=== PATIENT | male | born 1955 | race Caucasian/White ===

== ENCOUNTER 2019-03-18 22:06 | Inpatient (IN) | payer OTHER ==
[~2019-03-18] VITALS: Ht 182.9 cm; Wt 92.0 kg
[2019-03-18 22:37] LABS: Basophils # (auto) 0 uL; Basophils % (auto) 0.3 % (0.0-2.0); Eosinophils # (auto) 0.1 uL; Eosinophils % (auto) 0.5 % (0.0-7.0); Lymphocytes # (auto) 0.7 uL; Mean Corpuscular Hemoglobin 30.5 pg (28.0-32.0); Mean Corpuscular Hgb Conc. 33.7 g/dL (32.0-36.0); Monocytes # (auto) 0.5 uL; Neutrophils % (auto) 89.4 % (37.0-80.0)
[2019-03-18 22:39] LABS: Hemoglobin 18.5 g/dL (13.5-17.5); Lymphocytes % (auto) 5.4 % (10.0-50.0); Mean Corpuscular Volume 90.7 fL (80.0-100.0); Monocytes % (auto) 4.4 % (0.0-12.0); Nucleated Red Blood Cells % 0.2 %; Platelet Count (auto) 222 10^3/uL (140-450); Red Blood Cells 6.06 10^6/uL (4.5-5.90); Red Cell Distribution Width 14.4 % (11.8-14.3); White Blood Cell 12.3 10^3/uL (4.4-10.8)
[2019-03-18 22:52] LABS: Albumin 3.6 g/dL (3.4-5.0); BUN/Creatinine Ratio 21.4; Calcium 8.7 mg/dL (8.5-10.1); Potassium 4.6 mmol/L (3.5-5.1)
[2019-03-18 22:57] LABS: Bilirubin, Total 0.4 mg/dL (0.2-1.0); Total Protein 7.1 g/dL (6.4-8.2)
[2019-03-18 22:59] LABS: INR 1.03 (0.9-1.15); Partial Thromboplastin Time 23.1 sec (23.64-32.05)
[2019-03-18] MEDS ORDERED: ASPirin-EC 325mg tab PO ONE (23:15)
[2019-03-18] MEDS ORDERED: LORazepam 0.5 MG TAB PO ONE (23:15)
[2019-03-18] MEDS ORDERED: NITROGLYCERIN 0.2MG/HR TOPICAL PATCH TD ONE (23:15)
[2019-03-18 23:59] LABS: Urine Bacteria FEW /hpf (None Seen); Urine Blood TRACE /uL (Negative); Urine Mucus FEW (None Seen); Urine Specific Gravity 1.032 (1.001-1.035); Urine WBC 1 /hpf (0 - 3)
[2019-03-19] MEDS ORDERED: MORPHINE SULFATE INJECTION 1 ML ONE (00:39)
[2019-03-19] MEDS ORDERED: ONDANSETRON HCL 4 MG/2 ML VIAL ONE ×2 (00:39→17:11)
[2019-03-19] MEDS ORDERED: ENOXAPARIN SOD 100 MG/1 ML SYRINGE SC ONE ×2 (00:39→00:45)
[2019-03-19] MEDS ORDERED: MORPHINE SULFATE 10 MG/ML INJ 1ML SDV IV ONE (00:45)
[2019-03-19] MEDS ORDERED: CLOPIDOGREL BISULFATE 75 MG TAB PO ONE ×2 (00:45→12:15)
[2019-03-19] MEDS ORDERED: ONDANSETRON HCL 4 MG/2 ML VIAL IV ONE (00:45)
[2019-03-19] MEDS ORDERED: NITROGLYCERIN 0.4 MG SL TAB SL PRN (02:30)
[2019-03-19] MEDS ORDERED: ACETAMINOPHEN 325 MG TAB PO PRN (02:30)
[2019-03-19] MEDS ORDERED: TEMAZEPAM 15 MG CAP PO PRN (02:30)
[2019-03-19] MEDS ORDERED: MORPHINE SULF INJ 2 MG/ML SYRINGE 1ML IV PRN (02:30)
[2019-03-19] MEDS ORDERED: ATORVASTATIN 20 MG TAB PO ONE (02:30)
[2019-03-19] MEDS ORDERED: ONDANSETRON HCL 4 MG/2 ML VIAL IV PRN (02:30)
[2019-03-19 04:00] VITALS: BP 121/81
--- NOTE | 2019-03-19 04:25 | NUR ---
Telemetry admit from ER [facility] admitted to Telemetry unit after SBAR received. Patient oriented to RHONDA CARDOSO OCA, primary RN, unit, room, bed, and unit policies regarding patient care and visiting hours. Patient now on continuous telemetry monitoring, tele box #69 and telemetry reading on arrival to unit is Sinus rhythm 82. Patient placed on bedside oxygen, weighed by bedscale and encouraged to call if they need something. All questions and concerns addressed, patient verbalized understanding. Bed in lowest locked position, call light within reach, side rails up x2. Will continue to monitor Q1hr and PRN.
[2019-03-19] MEDS ORDERED: LEVO125T7 PO (05:07)
[2019-03-19] MEDS ORDERED: ATEN-60 PO (05:07)
[2019-03-19] MEDS ORDERED: TERA5CAP42 PO (05:07)
[2019-03-19] MEDS ORDERED: SIMV-8 PO (05:07)
[2019-03-19] MEDS ORDERED: SILD100T57 PO (05:08)
[2019-03-19 05:46] VITALS: BP 121/81
[2019-03-19 08:00] VITALS: BP 123/74
[2019-03-19] MEDS ORDERED: ASPirin 81 mg TAB PO SCH (10:00)
[2019-03-19] MEDS: FAMOTIDINE 20 MG TAB PO SCH ×2 (10:08→22:16)
--- NOTE | 2019-03-19 11:10 | NUR ---
Asked ammunition assembly ii laborer to recall cardio consult.
--- NOTE | 2019-03-19 11:35 | NUR ---
RECIEVED CALL FROM LAB, PATIENT HAS CRITICAL TROPONIN OF 2.730. SAW DR BERRY AT [facility], NOTIFIED AND AWARE. NO NEW ORDERS.
[2019-03-19 11:50] LABS: Cholesterol 137 mg/dL (< 200); Triglycerides 68 mg/dL (< 150)
[2019-03-19 11:53] LABS: HDL Cholesterol 33 mg/dL (40-59); LDL Cholesterol 88 mg/dL (< 100)
[2019-03-19] MEDS ORDERED: ENOXAPARIN SOD 100 MG/1 ML SYRINGE SC SCH (12:00)
--- NOTE | 2019-03-19 12:10 | NUR ---
SPOKE WITH DR MURILLO, PT IS TO HAVE 450 MG PLAVIX AND 80 MG LIPITOR NOW. PT IS TO REMAIN NPO UNTIL CLEARED BY CARDIOLOGY. ONCE CLEARED CHARGE REPORTS PT MUST BE DISCHARGED HOME OR TRANSFERRED TO [facility], HE IS A [facility] PATIENT.
[2019-03-19] MEDS ORDERED: CLOPIDOGREL 300 MG TAB PO ONE (12:15)
[2019-03-19 13:00] VITALS: BP 131/77
[2019-03-19] MEDS ORDERED: ATORVASTATIN 20 MG TAB PO SCH ×2 (13:30→22:00)
[2019-03-19] MEDS ORDERED: SODIUM CHLORIDE 0.9% 1,000 ML IV SCH (14:24)
[2019-03-19] MEDS ORDERED: OPTISON 3ml Vial for INJ IV ONE (14:33)
--- NOTE | 2019-03-19 15:02 | NUR ---
RECEIVED CALL FROM TELEVISION ANNOUNCER, AGNIESZKA WANTS PATIENT TO HAVE HEART CATH TODAY. DEMO EVENT SPECIALIST PRINTED UP CONSENTS AND CHECKLIST. CHECKLIST DONE, PT LEFT FLOOR VIA BED AND STAFF. REQUESTED ZOFRAN FOR PATIENT BEFORE SEDATION AND DIET AFTER PROCEDURE.
[2019-03-19 16:26] LABS: Basophils # (auto) 0.1 uL; Basophils % (auto) 0.5 % (0.0-2.0); Eosinophils # (auto) 0 uL; Eosinophils % (auto) 0.1 % (0.0-7.0); Hematocrit 51.9 % (41.0-53.0); Hemoglobin 17.4 g/dL (13.5-17.5); Lymphocytes # (auto) 0.4 uL; Mean Corpuscular Hemoglobin 30.2 pg (28.0-32.0); Mean Corpuscular Hgb Conc. 33.4 g/dL (32.0-36.0); Mean Corpuscular Volume 90.2 fL (80.0-100.0); Monocytes # (auto) 0.6 uL; Monocytes % (auto) 4.6 % (0.0-12.0); Neutrophils # (auto) 12.8 uL; Neutrophils % (auto) 91.8 % (37.0-80.0); Platelet Count (auto) 214 10^3/uL (140-450); Red Blood Cells 5.75 10^6/uL (4.5-5.90); Red Cell Distribution Width 14.6 % (11.8-14.3)
[2019-03-19 16:40] LABS: Anion Gap 12 (5-15); BUN/Creatinine Ratio 25.7; Blood Urea Nitrogen 26 mg/dL (7-18); Carbon Dioxide 23 mmol/L (21-32); Chloride 106 mmol/L (98-107); GFR African American 96 mL/min; GFR Non-African American 79 mL/min; Glucose 98 mg/dL (74-106); Potassium 3.7 mmol/L (3.5-5.1); Sodium 141 mmol/L (136-145)
[2019-03-19 16:46] LABS: INR 1.05 (0.9-1.15); Partial Thromboplastin Time 26.8 sec (23.64-32.05)
[2019-03-19] MEDS ORDERED: IOHEXOL 350 MG/ML 100ML IJ ONE ×2 (17:01→17:34)
[2019-03-19] MEDS ORDERED: LIDOCAINE 2%HCL (LOCAL ANESTH.) INJ 20ML MDV ONE (17:01)
[2019-03-19] MEDS ORDERED: ANGIOMAX 250 MG VIAL IV ONE (17:07)
[2019-03-19] MEDS ORDERED: fentaNYL CITRATE 100 MCG/2 ML VL ONE ×2 (17:07→17:45)
[2019-03-19] MEDS ORDERED: SODIUM CHL 0.9% 50 ML ONE (17:08)
[2019-03-19] MEDS ORDERED: MIDAZOLAM HCL 1MG/1ML-2 ML VIAL ONE ×3 (17:08→17:45)
[2019-03-19] MEDS ORDERED: METOPROLOL TARTRATE 1MG/1ML-5ML VIAL IV ONE (17:52)
[2019-03-19] MEDS ORDERED: TICAGRELOR 90 MG TAB ONE (17:57)
--- NOTE | 2019-03-19 19:20 | NUR ---
Opening Shift Note Assumed care of patient, awake and alert. No S/S of distress/SOB or pain. Instructed on POC and to call for assist PRN, will continue to monitor for changes Q1hr and PRN.
[2019-03-19] MEDS ORDERED: KETOROLAC TROMETH 30 MG/ML 1ML VIAL IV ONE (20:15)
[2019-03-19] MEDS ORDERED: HYDROcodone-ACET 5/325MG TAB PO PRN (20:15)
[2019-03-19] MEDS: METOPROLOL TARTRATE 25 MG TAB PO SCH (22:16)
[2019-03-19] MEDS: TICAGRELOR 90 MG TAB PO SCH (22:16)
[2019-03-19] MEDS: LISINOPRIL 5 MG TAB PO SCH (22:17)
[2019-03-19 23:49] VITALS: BP 142/72
--- NOTE | 2019-03-20 | NUR ---
IV removal per patient. Patient stated his IV was bothering him and wanted it removed and not have another IV placed at this time. IV to left AC DC'd with sterile technique, catheter fully intact. Pressure dressing applied to site. Patient tolerated procedure well.
--- NOTE | 2019-03-20 00:45 | NUR ---
Care endorsed to Brijesh DELA CRUZ.
--- NOTE | 2019-03-20 00:47 | NUR ---
Assumed care of patient. Patient asleep with No S/S of distress/SOB or pain.Will continue to monitor for changes Q1hr and PRN.
[2019-03-20 05:38] VITALS: BP 133/81
[2019-03-20 06:40] LABS: Hemoglobin 18.2 g/dL (13.5-17.5); Lymphocytes # (auto) 0.5 uL; Monocytes # (auto) 0.8 uL; Nucleated Red Blood Cells % 0.1 %; White Blood Cell 11.5 10^3/uL (4.4-10.8)
[2019-03-20 06:44] LABS: Basophils # (auto) 0 uL; Basophils % (auto) 0.4 % (0.0-2.0); Eosinophils # (auto) 0.1 uL; Eosinophils % (auto) 0.6 % (0.0-7.0); Hematocrit 54.1 % (41.0-53.0); Lymphocytes % (auto) 4.6 % (10.0-50.0); Mean Corpuscular Hemoglobin 30.6 pg (28.0-32.0); Mean Corpuscular Hgb Conc. 33.6 g/dL (32.0-36.0); Mean Corpuscular Volume 91.1 fL (80.0-100.0); Monocytes % (auto) 7.1 % (0.0-12.0); Neutrophils % (auto) 87.3 % (37.0-80.0); Platelet Count (auto) 213 10^3/uL (140-450); Red Blood Cells 5.93 10^6/uL (4.5-5.90); Red Cell Distribution Width 14.5 % (11.8-14.3)
--- NOTE | 2019-03-20 07:00 | NUR ---
No IV access Patient continuos to refuse IV placement. Patient verbalized "I don't need it, I will go home anyway"
--- NOTE | 2019-03-20 07:07 | NUR ---
Endorsed care to day shift RN.
[2019-03-20 07:09] LABS: Albumin 3.3 g/dL (3.4-5.0); BUN/Creatinine Ratio 22.5; Bilirubin, Total 0.9 mg/dL (0.2-1.0); Calcium 8.4 mg/dL (8.5-10.1); Total Protein 6.6 g/dL (6.4-8.2)
--- NOTE | 2019-03-20 08:00 | NUR ---
Pt resting in bed, no distress noted. Pt reports no pain at this time. Right groin incision clean, dry and intact, minimal serosanguineous drainage noted on dressing. No signs of edema or erythema. Site soft on palpation. Pt reports he does not want another IV, he reports he wants to go home as soon as possible for a family gathering later on today.
[2019-03-20 09:00] VITALS: BP 143/80
[2019-03-20] MEDS ORDERED: ATORVASTATIN 20 MG TAB PO SCH (10:00)
[2019-03-20] MEDS ORDERED: ASPirin 81 mg TAB PO SCH (10:00)
[2019-03-20] MEDS: FAMOTIDINE 20 MG TAB PO SCH (10:01)
[2019-03-20] MEDS: METOPROLOL TARTRATE 25 MG TAB PO SCH (10:01)
[2019-03-20] MEDS: LISINOPRIL 5 MG TAB PO SCH (10:02)
[2019-03-20] MEDS: TICAGRELOR 90 MG TAB PO SCH (10:03)
--- NOTE | 2019-03-20 12:12 | NUR ---
PT REPORTS HE IS ANXIOUS TO GO HOME. CALLED DR GREENFIELD AND REPORTED PT WOULD LIKE TO BE DISCHARGED. DR GREENFIELD REQUESTED TO CALL DR AARON TO GET CLEARANCE. CALLED PBX AND PAGED DR AARON, WILL CONTINUE TO MONITOR.
--- NOTE | 2019-03-20 12:16 | NUR ---
DR AARON CALLED BACK, HE REPORTS PATIENT IS CLEARED TO DISCHARGE. PATIENT TO FOLLOW UP WITH DR AARON IN 2 WEEKS.
--- NOTE | 2019-03-20 12:26 | NUR ---
DR GREENFIELD NOTIFIED AARON CLEARED PATIENT.
[2019-03-20 12:58] VITALS: BP 143/80
[2019-03-20 13:00] VITALS: BP 135/83
--- NOTE | 2019-03-20 13:36 | NUR ---
Discharge instructions given as ordered. Encourage to follow up with PMD and Theatre Program Director at [facility] as instructed. All questions and concerns addressed. Patient verbalized understanding. Medication reconciliation form completed and copy given to patient. IV already removed on manager night. Telemetry unit returned to ICU. Patient declined wheel chair to vehicle and left with all personal belongings, accompanied by spouse. No distress noted at time of departure.
== END 2019-03-20 14:00 | disposition home or self-care (01) | DRG 247 ==
LOC: EDBD 22:06 → ER 22:06 → WEST WING 22:07 → TELE-WESTW 03-19 19:09
PROVIDERS: ADMIT Nurse Practitioner; ATTEND Internal Medicine Nephrology
PROC: 027236Z Dilation of Coronary Artery, Three Arteries with Three Drug-eluting Intraluminal Devices, Percutaneous Approach (ICD-10-PCS; principal; 2019-03-19)
PROC: 4A023N7 Measurement of Cardiac Sampling and Pressure, Left Heart, Percutaneous Approach (ICD-10-PCS; 2019-03-19)
PROC: B2111ZZ Fluoroscopy of Multiple Coronary Arteries using Low Osmolar Contrast (ICD-10-PCS; 2019-03-19)
PROC: B2151ZZ Fluoroscopy of Left Heart using Low Osmolar Contrast (ICD-10-PCS; 2019-03-19)
DX: I21.4 Non-ST elevation (NSTEMI) myocardial infarction (principal); E78.00 Pure hypercholesterolemia, unspecified; E78.5 Hyperlipidemia, unspecified; F17.210 Nicotine dependence, cigarettes, uncomplicated; I70.0 Atherosclerosis of aorta; E88.09 Other disorders of plasma-protein metabolism, not elsewhere classified; I10 Essential (primary) hypertension; I25.110 Atherosclerotic heart disease of native coronary artery with unstable angina pectoris; Z80.1 Family history of malignant neoplasm of trachea, bronchus and lung; Z80.3 Family history of malignant neoplasm of breast
CPT/HCPCS: 36415; 71045; 80048; 80053; 80061; 81001; 83880; 84484; 85025; 85379; 85610; 85730; 86850; 86900; 86901; 92928; 93005; 93306; 93458; 96372; 96374; 96375; 99291; C1887; G0378; J1885; J2250; J2405; Q9956